=== PATIENT | female | born 1990 ===

== ENCOUNTER 2021-04-13 10:50 | Outpatient (CLI) | payer OTHER | END 2021-04-13 11:51 | disposition home or self-care (01) | LOC: PRENATAL 10:50 | PROVIDERS: ATTEND Obstetrics & Gynecology Maternal & Fetal Medicine | DX: O35.0XX1 Maternal care for (suspected) central nervous system malformation in fetus, fetus 1 (principal); O35.3XX1 Maternal care for (suspected) damage to fetus from viral disease in mother, fetus 1; O98.512 Other viral diseases complicating pregnancy, second trimester; O09.512 Supervision of elderly primigravida, second trimester; O10.012 Pre-existing essential hypertension complicating pregnancy, second trimester; O99.891 Other specified diseases and conditions complicating pregnancy; Z36.89 Encounter for other specified antenatal screening; Z3A.19 19 weeks gestation of pregnancy ==

== ENCOUNTER 2021-06-15 12:58 | Outpatient (CLI) | payer OTHER | END 2021-06-15 13:58 | disposition home or self-care (01) | LOC: PRENATAL 12:58 | PROVIDERS: ATTEND Obstetrics & Gynecology Maternal & Fetal Medicine | DX: O26.843 Uterine size-date discrepancy, third trimester (principal); O10.013 Pre-existing essential hypertension complicating pregnancy, third trimester; O99.891 Other specified diseases and conditions complicating pregnancy; O09.513 Supervision of elderly primigravida, third trimester; Z36.89 Encounter for other specified antenatal screening; Z3A.29 29 weeks gestation of pregnancy ==

== ENCOUNTER 2021-07-26 14:53 | Outpatient (CLI) | payer OTHER | END 2021-07-26 16:26 | disposition home or self-care (01) | LOC: PRENATAL 14:53 | PROVIDERS: ATTEND Obstetrics & Gynecology Maternal & Fetal Medicine | DX: O26.843 Uterine size-date discrepancy, third trimester (principal); O10.013 Pre-existing essential hypertension complicating pregnancy, third trimester; O99.891 Other specified diseases and conditions complicating pregnancy; O09.513 Supervision of elderly primigravida, third trimester; Z36.89 Encounter for other specified antenatal screening; Z3A.34 34 weeks gestation of pregnancy ==

== ENCOUNTER 2021-08-14 22:33 | Inpatient (IN) | payer OTHER ==
[~2021-08-14] VITALS: Ht 157.5 cm; Wt 61.2 kg
[2021-08-14] MEDS ORDERED: LABETALOL 21 MG/1 ML PO (23:01)
[2021-08-14] MEDS ORDERED: PRENATAL TABLE1 EAC1 PO (23:02)
[2021-08-14] MEDS ORDERED: SYNTHROID175 MCG PO (23:03)
[2021-08-15] MEDS ORDERED: METOPROLOL SUCC50 MG (10:09)
== END 2021-08-17 13:34 | disposition home or self-care (01) | DRG 807 ==
LOC: OBS/DEL 22:33 → LDR 08-15 00:20 → OB/GYN 08-15 00:20
PROVIDERS: ADMIT Obstetrics & Gynecology; ATTEND Obstetrics & Gynecology
PROC: 10E0XZZ Delivery of Products of Conception, External Approach (ICD-10-PCS; principal; 2021-08-15)
PROC: 0KQM0ZZ Repair Perineum Muscle, Open Approach (ICD-10-PCS; 2021-08-15)
PROC: 4A1HXCZ Monitoring of Products of Conception, Cardiac Rate, External Approach (ICD-10-PCS; 2021-08-15)
DX: O70.1 Second degree perineal laceration during delivery (principal); Z37.0 Single live birth; Z3A.37 37 weeks gestation of pregnancy; Z20.822 Contact with and (suspected) exposure to COVID-19